=== PATIENT | male | born 1990 | race Caucasian/White ===

== ENCOUNTER 2024-08-28 00:01 | Emergency (ER) | payer BC, SELFPAY ==
[2024-08-28 00:04] VITALS: O2SAT 100
[2024-08-28 00:06] VITALS: BP 116/79; PULSE 72; RESP 18; O2SAT 100
[2024-08-28 00:09] VITALS: BP 116/79; PULSE 73; RESP 18; TEMP 36.7; O2SAT 100
--- NOTE | 2024-08-28 00:38 | ED_ITS ---
HPI - General Adult General Chief complaint: Recheck/Abnormal Lab/Rx Stated complaint: W/D FROM [place], WANTS RESOURCES TO DETOX Time Seen by Provider: 08/28/24 00:24 History of Present Illness HPI narrative: this is a 34-year-old male who is currently homeless presenting for resources for his methamphetamine abuse. Patient was in the area dating a girl and they broke up and she kicked him out of house. He now has nowhere to go. He last used meth in the last 1 or 2 days and has occasionally been using fentanyl. He is here today requesting help with substance abuse. His only physical complaints are that he feels uncomfortable. No SI HI. Exam Narrative: APPEARANCE: No apparent distress. Resting comfortably in bed Head: atraumatic. EYES: EOMI, NOSE: Atraumatic NECK: Trachea midline RESPIRATORY: No increased rate of breathing clear to auscultation CARDIOVASCULAR: RRR, ABDOMINAL: Non-distended soft nontender MUSCULOSKELETAl: No obvious deformities NEURO: Alert. Moving 4/4 extremities SKIN:: Warm, dry. Normal color PSYCHIATRIC: Normal affect Course Vital Signs Vital signs: Vital Signs Pulse Oximetry 100 08/28/24 00:04 Temperature 98.0 F 08/28/24 00:09 Pulse Rate 73 08/28/24 00:09 Respiratory Rate 18 08/28/24 00:09 Blood Pressure 116/79 08/28/24 00:09 Pulse Oximetry 100 08/28/24 00:09 Oxygen Delivery Room Air 08/28/24 00:09 Medical Decision Making MDM Narrative Medical decision making narrative: -Course: 34-year-old homeless male presenting requesting substance abuse resources. His vital signs are stable and he is resting comfortably in bed. No evidence of withdrawal at this time.He has resources been provided. Patient will be discharged. Vital Signs Vital Signs: Vital Signs Pulse Oximetry 100 08/28/24 00:04 Temperature 98.0 F 08/28/24 00:09 Pulse Rate 73 08/28/24 00:09 Respiratory Rate 18 08/28/24 00:09 Blood Pressure 116/79 08/28/24 00:09 Pulse Oximetry 100 08/28/24 00:09 Oxygen Delivery Room Air 08/28/24 00:09 Discharge Plan Discharge Clinical Impression: Homeless Patient Disposition: Home, Self-Care Condition: Stable Instructions: Antibiotic Form, Amphetamine (By mouth) Additional Instructions: Please contact the resources provided for help with her substance abuse. Please report to a homeless intermediate if you do not have a place to stay. He can return to the ED at any time she develop new or worsening symptoms. Patient Language: Thai Follow-up/Referrals: PHYSICIAN,[facility] [Primary Care Provider] -
== END 2024-08-28 00:52 | disposition home or self-care (01) ==
PROVIDERS: Emergency Provider Emergency Medicine
DX: F15.10 Other stimulant abuse, uncomplicated (principal); Z59.00 Homelessness unspecified
CPT/HCPCS: 99281